=== PATIENT | female | born 1955 ===

== ENCOUNTER 2025-04-26 10:54 | Outpatient (AMB) | payer BC, SELFPAY | END 2025-04-26 11:28 | disposition home or self-care (01) | LOC: HO.HMGAL 10:54 | PROVIDERS: PCP Internal Medicine; Visit Provider Registered Nurse Emergency | DX: J30.89 Other allergic rhinitis (principal) | CPT/HCPCS: 95117; 95165 ==

== ENCOUNTER 2025-06-07 11:08 | Outpatient (AMB) | payer BC, SELFPAY | END 2025-06-07 11:10 | disposition home or self-care (01) | LOC: HO.HMGAL 11:08 | PROVIDERS: PCP Internal Medicine; Visit Provider Registered Nurse Emergency | DX: J30.89 Other allergic rhinitis (principal) | CPT/HCPCS: 95117; 95165 ==

== ENCOUNTER 2025-07-12 11:00 | Outpatient (AMB) | payer BC, SELFPAY | END 2025-07-12 11:00 | disposition home or self-care (01) | LOC: HO.HMGAL 11:00 | PROVIDERS: PCP Internal Medicine; Visit Provider Registered Nurse Emergency | DX: J30.89 Other allergic rhinitis (principal) | CPT/HCPCS: 95117; 95165 ==

== ENCOUNTER 2025-08-16 10:48 | Outpatient (AMB) | payer BC, SELFPAY | END 2025-08-16 10:48 | disposition home or self-care (01) | LOC: HO.HMGAL 10:48 | PROVIDERS: PCP Internal Medicine; Visit Provider Registered Nurse Emergency | DX: J30.89 Other allergic rhinitis (principal) | CPT/HCPCS: 95117; 95165 ==